=== PATIENT | male | born 1940 | race Caucasian/White ===

== ENCOUNTER 2017-08-03 11:22 | Day surgery (SDC) | payer MEDICARE, OTHER ==
[~2017-08-03] VITALS: Ht 190.5 cm; Wt 99.9 kg
[~2017-08-03 11:22] MED LIST: ALLO100 PO; AMLO5 PO; ASPI81CH PO; CHOL10002 PO; DRON400T PO; FISH1000 PO; MAGNESIUM250 MG PO; NEBI5 PO; OMEP20ER PO; STRESS B-COMPL1 EACH PO; TRIHYD253A PO; XARELTO20 MG PO
[2017-08-03] MEDS ORDERED: Omeprazole20 M1 (11:55)
[2017-08-03] MEDS ORDERED: ABAT250V (11:55)
[2017-08-03] MEDS ORDERED: TRIA50 (11:57)
== END 2017-08-03 13:46 | disposition home or self-care (01) ==
LOC: ORSCSDS 11:22
PROVIDERS: Orthopaedic Surgery
PROC: 3E0R33Z Introduction of Anti-inflammatory into Spinal Canal, Percutaneous Approach (ICD-10-PCS; principal; 2017-08-03 12:30)
DX: M51.16 Intervertebral disc disorders with radiculopathy, lumbar region (principal); M48.062 Spinal stenosis, lumbar region with neurogenic claudication; G47.33 Obstructive sleep apnea (adult) (pediatric); E78.5 Hyperlipidemia, unspecified; Z79.82 Long term (current) use of aspirin; Z79.899 Other long term (current) drug therapy
CPT/HCPCS: J1040

== ENCOUNTER 2019-03-21 08:18 | Day surgery (SDC) | payer MEDICARE, OTHER ==
[~2019-03-21] VITALS: Ht 188 cm; Wt 100.1 kg
[~2019-03-21 08:18] MED LIST changes: +ABAT250V; +FISH OIL 1,0001 EAC1; +Flomax0.4 MG; +Magnesium250 MG; +Omeprazole20 M1; +PSEU120ER; +STRESS B-COMPL1 EACH; +TRIA50
--- NOTE | 2019-03-21 09:19 | NUR ---
History, Chart, Medications and Allergies reviewed before start of procedure. Patient confirms NPO status and agrees with scheduled surgery. Lungs clear T/O to Auscultation. Pre-Op teaching done. Pt verbalizes understanding. Patient reports completing Chlorhexadine shower X2 prior to admission to hospital. Patient States Post-Procedure ride home has been arranged. PATIENT HAD NO DENTURES, GLASSES, CONTACTS, OR JEWELRY PRESENT AT ADMIT. BILATERAL HEARING DEVICES WILL BE LEFT IN PLACE, PATIENT STATES HE CAN'T HEAR ANYTHING WITHOUT THEM.
--- NOTE | 2019-03-21 10:43 | NUR ---
1008- UPDATED TO DELAY IN TO OR.
--- NOTE | 2019-03-21 10:49 | NUR ---
PATIENT UP TO BR FOR UNMEASURED VOID.
--- NOTE | 2019-03-21 13:43 | NUR ---
PT INTO STEP. RECEIVED REPORT FROM DARON ANTHONY. VSS. PT TOLERATING ORAL FLUIDS. DENIES FOOD AT THIS TIME. NO C/O PAIN OR NAUSEA. WILL CONTINUE TO MONITOR.
--- NOTE | 2019-03-21 15:38 | NUR ---
Patient up to Ambulate independently. Gait steady. Discharge instructions reviewed with patient. Patient verbalizes understanding. Copy given to patient to take home. Discharged via wheelchair to private car for ride home.
--- NOTE | 2019-03-22 08:55 | NUR ---
03/22/19 0855 Gayle Felder VERIFICATIONS: EDIT CHART.
== END 2019-03-21 15:39 | disposition home or self-care (01) ==
LOC: ORSCMMR 08:18 → ORD 09:45 → ORSCMMR 09:45
DX: K40.90 Unilateral inguinal hernia, without obstruction or gangrene, not specified as recurrent (principal); K42.9 Umbilical hernia without obstruction or gangrene; I10 Essential (primary) hypertension; I48.91 Unspecified atrial fibrillation; G47.33 Obstructive sleep apnea (adult) (pediatric); Z79.01 Long term (current) use of anticoagulants; Z79.899 Other long term (current) drug therapy
CPT/HCPCS: A9270-GY; C1781; J0690; J1100; J1885; J2250; J2405; J2704; J3010; J7120

== ENCOUNTER 2019-05-27 07:04 | Day surgery (SDC) | payer MEDICARE, OTHER ==
[~2019-05-27] VITALS: Ht 188 cm; Wt 101.0 kg
[~2019-05-27 07:04] MED LIST changes: -Omeprazole20 M1; +Omeprazole20 M1 PO; +SUDAFED PE SIN1 EAC2 PO; +VITAMIN A10000 UNIT PO
--- NOTE | 2019-05-27 09:22 | NUR ---
DISCHARGE PT REMAINED A&OX3 AND DENIED ANY PAIN DURING RECOVERY. IV DC'D WITH CANULA IN TACT. PT ABLE TODRESS SELF INDEPENDANTLY AND ABULATE WITH A STEADY GAIT. DISCHARGE PAPERWORK GONE OVER WITH PT. PT VERBALLY STATED THE UNDERSTANDING OF THE DISCHARGE EDUCATION AND DENIED ANY QUESTIONS AT THIS TIME. PT WHEELED OUT WITH BELONGINGS BY THIS NURSE.
== END 2019-05-27 22:40 | disposition home or self-care (01) ==
LOC: MHTC 07:04
DX: I48.0 Paroxysmal atrial fibrillation (principal); I44.0 Atrioventricular block, first degree; R00.1 Bradycardia, unspecified; I25.10 Atherosclerotic heart disease of native coronary artery without angina pectoris; I10 Essential (primary) hypertension; G47.33 Obstructive sleep apnea (adult) (pediatric); I77.819 Aortic ectasia, unspecified site; Z88.8 Allergy status to other drugs, medicaments and biological substances; Z79.01 Long term (current) use of anticoagulants; Z79.899 Other long term (current) drug therapy
CPT/HCPCS: 92960; 93005; 93010; J2704; J7120

== ENCOUNTER 2019-11-25 06:53 | Day surgery (SDC) | payer MEDICARE, OTHER ==
[~2019-11-25] VITALS: Ht 188 cm; Wt 95.0 kg
[~2019-11-25 06:53] MED LIST changes: +ATEN100 PO; +Dyazide 37.5/251 EA PO; -Flomax0.4 MG; +Flomax0.4 MG PO
[2019-11-25] MEDS ORDERED: MAGNESIUM PO (06:54)
[2019-11-25] MEDS ORDERED: VITAMIN D PO (06:55)
--- NOTE | 2019-11-25 07:37 | NUR ---
DR POWERS IN ROOM TO CONSENT PT.
--- NOTE | 2019-11-25 07:56 | NUR ---
200J SYNCHRONIZED SHOCK DELIEVERED. PT TOLERATED WELL.
--- NOTE | 2019-11-25 08:10 | NUR ---
DR YUNG BACK IN TO SEE PT.
--- NOTE | 2019-11-25 08:26 | NUR ---
PT STATES HE IS FEELING GOOD AND DENIES ANY CHEST PAIN. CALL LIGHT IN REACH.
--- NOTE | 2019-11-25 09:08 | NUR ---
DISCHARGE INSTRUCTIONS REVIEWED ALL QUESTIONS ANSWERED. 20 G IV DISCONTINUED FROM RIGHT AC WITH INTACT CANNULA. PT ESCORTED OUT VIA WHEELCHAIR ESCORT.
== END 2019-11-25 23:22 | disposition home or self-care (01) ==
LOC: MHTC 06:53
DX: I48.0 Paroxysmal atrial fibrillation (principal); I49.5 Sick sinus syndrome; Z95.0 Presence of cardiac pacemaker; I77.810 Thoracic aortic ectasia; I25.10 Atherosclerotic heart disease of native coronary artery without angina pectoris; I10 Essential (primary) hypertension; G47.33 Obstructive sleep apnea (adult) (pediatric); Z88.8 Allergy status to other drugs, medicaments and biological substances; Z79.01 Long term (current) use of anticoagulants; Z79.899 Other long term (current) drug therapy
CPT/HCPCS: 92960; 93005; 93010; J2704; J7120

== ENCOUNTER → 2021-01-11 | Outpatient (CLI) | payer MEDICARE, OTHER ==
[~2021-01-11] MED LIST changes: +MAGNESIUM PO; +VITAMIN D PO
[2021-01-11 10:29] LABS: BASOPHILS ABSOLUTE AUTO 0.04 K/mm3 (0.00-0.23); BASOPHILS PERCENT AUTO 1 % (0-2); EOSINOPHILS ABSOLUTE AUTO 0.09 K/mm3 (0.00-0.68); EOSINOPHILS PERCENT AUTO 2 % (0-6); Hematocrit 44.7 % (37.0-53.0); Hemoglobin 15.1 g/dL (13.5-17.5); IMMATURE GRAN ABSOLUTE AUTO 0.01 K/mm3 (0.00-0.10); IMMATURE GRAN PERCENT AUTO 0 % (0-1); LYMPHOCYTES ABSOLUTE AUTO 1.57 K/mm3 (0.84-5.20); LYMPHOCYTES PERCENT AUTO 28 % (21-46); MONOCYTES ABSOLUTE AUTO 0.48 K/mm3 (0.16-1.47); MONOCYTES PERCENT AUTO 9 % (4-13); Mean Corpuscular HGB 30.8 pg (26.0-34.0); Mean Corpuscular HGB Conc 33.8 g/dL (31.5-36.5); Mean Corpuscular Volume 91 fL (80-100); Mean Platelet Volume 9.3 fL (9.1-12.4); NEUTROPHILS ABSOLUTE AUTO 3.43 K/mm3 (1.96-9.15); NEUTROPHILS PERCENT AUTO 61 % (41-73); Platelet Count 216 K/mm3 (150-400); RDW Coefficient Variation 12.8 % (11.7-14.2); RDW Standard Deviation 42.7 fL (35.1-46.3); White Blood Cell Count 5.62 K/mm3 (4.00-11.30)
[2021-01-11 11:17] LABS: Alanine Aminotransfer (ALT/SGP 19 U/L (12-78); Albumin, Blood 3.4 g/dL (3.4-5.0); Alk Phos 79 U/L (50-136); Anion Gap 4 mmol/L (6-16); Aspartate Aminotrans (AST/SGOT 12 U/L (12-37); Bilirubin, Total 1.1 mg/dL (0.1-1.0); Blood Urea Nitrogen 19 mg/dL (8-24); CO2, Blood 28 mmol/L (21-32); Chloride, Blood 108 mmol/L (98-108); Creatinine, Blood 0.83 mg/dL (0.60-1.20); Globulin, Blood 3.4 g/dL (2.2-4.0); Glomerular Filtration Rate >60 (60-); Glucose, Blood 99 mg/dL (70-99); Potassium, Blood 3.9 mmol/L (3.5-5.5); Sodium, Blood 140 mmol/L (136-145); Total Protein, Blood 6.8 g/dL (6.4-8.2); Uric Acid, Blood 6.4 mg/dL (3.5-7.2)
[2021-01-11 13:04] LABS: Creatinine, Urine Random 94.1 mg/dL (27.00-270.00)
[2021-01-11 13:07] LABS: Microalb/Creat Ratio UR, Rand 6.057 mg/g (0.000-30.000); Microalbumin, Random Urine 5.7 mg/L (0.000-20.000)
== END | disposition home or self-care (01) ==
LOC: LAB SHORT 09:15
PROVIDERS: Family Medicine
DX: R73.9 Hyperglycemia, unspecified (principal); I10 Essential (primary) hypertension; Z87.39 Personal history of other diseases of the musculoskeletal system and connective tissue
CPT/HCPCS: 80053; 82043; 82570; 83036; 84550; 85025

== ENCOUNTER → 2022-01-06 | Outpatient (CLI) | payer MEDICARE, OTHER ==
[2022-01-08 12:44] LABS: Stool Occult Bld Immuno 1 Negative (NEGATIVE); Stool Occult Bld Immuno 2 Positive (NEGATIVE)
== END | disposition home or self-care (01) ==
LOC: LAB SHORT 12:18 → LAB 12:18
PROVIDERS: Internal Medicine Gastroenterology
DX: Z09 Encounter for follow-up examination after completed treatment for conditions other than malignant neoplasm (principal); Z86.010 Personal history of colon polyps
CPT/HCPCS: 82274

== ENCOUNTER 2022-01-19 13:24 | Day surgery (SDC) | payer MEDICARE, OTHER ==
[~2022-01-19] VITALS: Ht 188 cm; Wt 99.1 kg
== END 2022-01-19 16:44 | disposition home or self-care (01) ==
LOC: ORSCSDS 13:24
PROVIDERS: Internal Medicine Gastroenterology
PROC: 0DBK8ZX Excision of Ascending Colon, Via Natural or Artificial Opening Endoscopic, Diagnostic (ICD-10-PCS; principal; 2022-01-19 14:30)
DX: K92.1 Melena (principal); D12.2 Benign neoplasm of ascending colon; Z86.010 Personal history of colon polyps; K57.30 Diverticulosis of large intestine without perforation or abscess without bleeding; K64.8 Other hemorrhoids; I10 Essential (primary) hypertension; I48.91 Unspecified atrial fibrillation; Z79.01 Long term (current) use of anticoagulants; G47.33 Obstructive sleep apnea (adult) (pediatric); K21.9 Gastro-esophageal reflux disease without esophagitis; Z95.0 Presence of cardiac pacemaker; Z79.899 Other long term (current) drug therapy
CPT/HCPCS: 88305; J0330; J0461; J2405; J2704; J7120; Q9968

== ENCOUNTER 2022-08-03 06:54 | Day surgery (SDC) | payer MEDICARE, OTHER ==
[~2022-08-03] VITALS: Ht 188 cm; Wt 100.7 kg
[~2022-08-03 06:54] MED LIST changes: +OMEP20ER; -Omeprazole20 M1 PO
[2022-08-03] MEDS ORDERED: AMLO5 PO (07:19)
[2022-08-03] MEDS ORDERED: CALCIUM 250-VI1 EAC1 PO (07:20)
[2022-08-03 08:43] VITALS: BP 133/73
--- NOTE | 2022-08-03 09:10 | NUR ---
08/03/22 0910 MELISSA ROBERTS IV REMOVED FROM LEFT FOREARM AT 0900. SITE WNL, CANULA INTACT, PT TOLERATED PROCEDURE WELL.
== END 2022-08-03 09:03 | disposition home or self-care (01) ==
LOC: ORSCSDS 06:54
PROVIDERS: Ophthalmology
PROC: 08RK3JZ Replacement of Left Lens with Synthetic Substitute, Percutaneous Approach (ICD-10-PCS; principal; 2022-08-03 08:00)
DX: H25.13 Age-related nuclear cataract, bilateral (principal); H21.81 Floppy iris syndrome; I10 Essential (primary) hypertension; I48.91 Unspecified atrial fibrillation; Z79.01 Long term (current) use of anticoagulants; G47.33 Obstructive sleep apnea (adult) (pediatric); K21.9 Gastro-esophageal reflux disease without esophagitis; Z79.899 Other long term (current) drug therapy
CPT/HCPCS: J2001; J2250; J3010; J3301; J7040; V2632

== ENCOUNTER → 2022-08-08 | Outpatient (CLI) | payer MEDICARE, OTHER ==
[~2022-08-08] MED LIST changes: +CALCIUM 250-VI1 EAC1 PO
[2022-08-10 10:54] LABS: Stool Occult Bld Immuno 1 Negative (NEGATIVE); Stool Occult Bld Immuno 2 Negative (NEGATIVE); Stool Occult Bld Immuno 3 Negative (NEGATIVE)
== END | disposition home or self-care (01) ==
LOC: LAB 14:41 → LAB SHORT 14:41
PROVIDERS: Family Medicine
DX: D64.9 Anemia, unspecified (principal)
CPT/HCPCS: G0328

== ENCOUNTER → 2023-01-04 | Outpatient (CLI) | payer MEDICARE, OTHER ==
[2023-01-04 14:17] LABS: BASOPHILS ABSOLUTE AUTO 0.07 K/mm3 (0.00-0.23); BASOPHILS PERCENT AUTO 1 % (0-2); EOSINOPHILS ABSOLUTE AUTO 0.11 K/mm3 (0.00-0.68); EOSINOPHILS PERCENT AUTO 1 % (0-6); Hematocrit 38.1 % (37.0-53.0); Hemoglobin 12.6 g/dL (13.5-17.5); IMMATURE GRAN ABSOLUTE AUTO 0.04 K/mm3 (0.00-0.10); IMMATURE GRAN PERCENT AUTO 1 % (0-1); LYMPHOCYTES ABSOLUTE AUTO 1.45 K/mm3 (0.84-5.20); LYMPHOCYTES PERCENT AUTO 19 % (21-46); MONOCYTES ABSOLUTE AUTO 0.63 K/mm3 (0.16-1.47); MONOCYTES PERCENT AUTO 8 % (4-13); Mean Corpuscular HGB 27.5 pg (26.0-34.0); Mean Corpuscular HGB Conc 33.1 g/dL (31.5-36.5); Mean Corpuscular Volume 83 fL (80-100); Mean Platelet Volume 8.8 fL (9.1-12.4); NEUTROPHILS PERCENT AUTO 70 % (41-73); Platelet Count 297 K/mm3 (150-400); RDW Coefficient Variation 14.6 % (11.7-14.2); RDW Standard Deviation 44.2 fL (35.1-46.3); Red Blood Cell Count 4.59 M/mm3 (4.30-5.90)
[2023-01-04 14:24] LABS: Bun/Creatinine Ratio 20.2 (12.0-20.0); Calcium, Blood 8.9 mg/dL (8.5-10.1); Creatinine, Blood 0.84 mg/dL (0.60-1.20); Potassium, Blood 4.2 mmol/L (3.5-5.5); Uric Acid, Blood 4.5 mg/dL (3.5-7.2)
== END ==
LOC: LAB 14:10 → LAB SHORT 14:10
PROVIDERS: Chiropractor
DX: M25.431 Effusion, right wrist (principal)
CPT/HCPCS: 80048; 84550; 85025; 85651; 86140

== ENCOUNTER → 2023-02-02 | Outpatient (CLI) | payer MEDICARE, OTHER ==
[2023-02-04 09:14] LABS: RHEUMATOID FACTOR 27 IU/mL (0-14)
[2023-02-06 20:17] LABS: ANTI-NUCLEAR AB ANA,IGG ELISA None Detected (None Detected)
== END ==
LOC: LAB SHORT 09:26 → LAB 09:26
PROVIDERS: Family Medicine
DX: Z12.5 Encounter for screening for malignant neoplasm of prostate (principal); M25.50 Pain in unspecified joint; R73.03 Prediabetes
CPT/HCPCS: 36415; 85651; 86038; 86140; 86431

== ENCOUNTER → 2025-01-23 | Outpatient (CLI) | payer MEDICARE, OTHER | END | disposition home or self-care (01) | LOC: LAB 09:16 → LAB SHORT 09:16 | DX: L60.2 Onychogryphosis (principal); B35.1 Tinea unguium | CPT/HCPCS: 88305; 88312 ==